=== PATIENT | male | born 1995 | race Caucasian/White ===

== ENCOUNTER 2020-07-31 00:31 | Inpatient (IN) | payer MEDICAID ==
[~2020-07-31] VITALS: Ht 188 cm; Wt 117.9 kg
[2020-07-31] MEDS ORDERED: IPRATROPIUM NEB FS 0.5 MG/2.5 ML AMPUL.NEB NEB PRN (01:30)
[2020-07-31] MEDS ORDERED: ONDANSETRON HCL/PF 4 MG/2 ML VIAL IVP PRN (01:30)
[2020-07-31] MEDS ORDERED: ALBUTEROL FS 2.5 MG/3 ML VIAL.NEB NEB PRN (01:30)
[2020-07-31] MEDS ORDERED: MAGNESIUM HYDROXIDE 30 ML UDC PO PRN (01:30)
[2020-07-31] MEDS ORDERED: MAG HYDROX/AL HYDROX/SIMETH 30 ML UDC PO PRN (01:30)
[2020-07-31] MEDS ORDERED: Z GUARD REMEDY 2 OZ OINT TP PRN (01:30)
[2020-07-31] MEDS ORDERED: ZOLPIDEM TARTRATE 5 MG TABLET PO PRN (01:30)
[2020-07-31 02:15] VITALS: BP 136/91
[2020-07-31] MEDS: HYDROCODONE/APAP 5/325MG TABLET PO PRN ×3 (03:04→18:45)
[2020-07-31] MEDS: methylPREDNISolone SOD SUCC 125 MG/2ML VIAL IV SCH ×3 (05:12→21:10)
[2020-07-31] MEDS: IV NS 0.9% 1,000 ML IV PRN ×2 (05:36→18:45)
--- NOTE | 2020-07-31 06:09 | NUR ---
CUSHION MAKER HAND NOTES AWAKE & RESPONSIVE. NOT IN ANY DISTRESS. NO SOB NOTED. DENIES ANY PAIN OR DISCOMFORT AT THIS TIME. ON TELE SR @ 69 WITH IVF INFUSING WELL. MONITORED ACCORDINGLY. CALL LIGHT WITHIN REACH. BED IN LOWEST POSITION. SR UP X 2 FOR SAFETY. WILL ENDORSE TO NEXT SHIFT.
[2020-07-31 08:00] VITALS: BP 130/87
--- NOTE | 2020-07-31 08:08 | NUR ---
MS/RN OPENING NOTE RECEIVED PATIENT FROM GARBAGE TRUCK DRIVER NURSE. PATIENT IS ASLEEP IN BED, EASILY WOKEN UP. A/O X4. NO ACUTE DISTRESS NOTED. PATIENT ON OXYGEN 3L/MIN VIA NASAL CANNULA, TOLERATING WELL. NO SOB NOTED, BREATHING EVEN, NON LABORED. SAFETY MEASURE IN PLACE, BED LOCKED AND IN LOWEST POSITION, CALL LIGHT WITHIN REACH. WILL CONTINUE TO MONITOR AND ENSURE SAFETY.
[2020-07-31] MEDS: PANTOPRAZOLE 40 MG TABLET.DR PO SCH (08:29)
[2020-07-31] MEDS: LEVOFLOXACIN (250MG) 250 MG TABLET PO SCH (10:58)
[2020-07-31] MEDS: ALBUTEROL FS 2.5 MG/3 ML VIAL.NEB NEB SCH ×4 (12:28→23:30)
[2020-07-31] MEDS: IPRATROPIUM NEB FS 0.5 MG/2.5 ML AMPUL.NEB NEB SCH ×4 (12:28→23:30)
--- NOTE | 2020-07-31 13:12 | NUR ---
MS/RN NOTE PATIENT WAS RECEIVING BREATHING TREATMENT WHEN PATIENT STARTED TO SHIVER AND HAND BEGAN TO TREMOR. BRREATHING TREATMENT WAS STOPPED. VS WERE TAKEN, VS WNL. O2 SAT 98%. CHARGE NURSE WAS MADE AWARE. HEATED BLANKET WAS PLACED. RECHECKED 15 MINUTES LATER PATIENT WAS COMFORTABLE IN HOSPITAL BED. NO ACUTE DISTRESS NOTED.
--- NOTE | 2020-07-31 13:20 | NUR ---
RT NOTE PT WAS RECEIVING BREATHING TX ORDERED WHEN PT BEGAN COMPLAINING OF NAUSEA AND HAND TREMORS AND BEGAN SHIVERING. BREATHING TX WAS STOPPED AND VS TAKEN. VS WERE NORMAL RN JOHN ACSTANEDA.DUMP GRADER NOTIFIED. PT WAS CHECKED 20 MINS LATER. PT WAS FOUND TO BE ASLEEP IN HOSPITAL BED NO DISTRESS NOTED.
[2020-07-31 16:00] VITALS: BP 127/85
--- NOTE | 2020-07-31 19:10 | NUR ---
MS/RN CLOSING NOTE PATIENT IS AWAKE IN BED. A/O X4. NO ACUTE DISTRESS NOTED. PATIENT ON OXYGEN 2L/MIN VIA NASAL CANNULA, TOLERATING WELL. NO SOB NOTED, BREATHING EVEN, NON LABORED. SAFETY MEASURE IN PLACE, BED LOCKED AND IN LOWEST POSITION, CALL LIGHT WITHIN REACH. ALL NEEDS MET THROUGHOUT THE SHIFT. WILL ENDORSE TO AUTO RADIO MECHANIC NURSE.
--- NOTE | 2020-07-31 19:46 | NUR ---
MS CLINICAL CODER INITIAL NOTES Received pt in bed awake and alert oriented watching tv at this time without any distress noted and talking to someone from his cellphone. He still with IVF NS at 75ml/hr infusing on his LEFT AC patent and intact. kept him warm and comfortable at all times. place call light at reach. will continue monitoring.
[2020-07-31 20:00] VITALS: BP 99/56
[2020-07-31] MEDS: ACETAMINOPHEN 325 MG TABLET PO PRN (20:33)
--- NOTE | 2020-07-31 20:35 | NUR ---
accountant assistant notes pt complaint of headache , tylenol po given as ordered. Vital signs within normal limit.
--- NOTE | 2020-08-01 02:11 | NUR ---
ms rahul notes pt called and asking for something for nausea, Zofran given jo IVP as ordered. will continue monitoring.
--- NOTE | 2020-08-01 03:00 | NUR ---
ms rahul notes Checked pt Nausea subside , restring at this time. kep him warm and comfortable at all times. will continue monitoring.
[2020-08-01] MEDS: IPRATROPIUM NEB FS 0.5 MG/2.5 ML AMPUL.NEB NEB SCH ×6 (03:30→23:29)
[2020-08-01] MEDS: ALBUTEROL FS 2.5 MG/3 ML VIAL.NEB NEB SCH ×6 (03:30→23:29)
[2020-08-01] MEDS: methylPREDNISolone SOD SUCC 125 MG/2ML VIAL IV SCH ×3 (05:12→20:43)
--- NOTE | 2020-08-01 06:54 | NUR ---
ms bookkeeping teacher closing notes pt resting comfortably in bed without any SOB , no signs of any distress noted. kept him warm and comfortable at all times. all due meds given and all needs met. kept him warm and comfortable at all times. place call light at reach. will endorse to am nurse for continuity of care.
[2020-08-01 06:58] LABS: BASOPHILS % (AUTO) 0.1 % (0.0-2.0); HEMATOCRIT 45 % (39-51); HEMOGLOBIN 14.9 g/dL (13.5-17.5); LYMPHOCYTES % (AUTO) 6.1 % (20.0-44.0); MEAN CORPUSCULAR HGB CONC 33 g/dl (31.0-36.0); MEAN CORPUSCULAR VOLUME 93 fL (80-96); MONOCYTES # (AUTO) 0.6 /CMM (0.1-1.30); MONOCYTES % (AUTO) 3.6 % (2.0-12.0); NEUTROPHILS # (AUTO) 15.2 /CMM (1.8-8.9); NEUTROPHILS % (AUTO) 90.2 % (43.0-81.0); PLATELET COUNT (AUTO) 253 /CMM (150-450); RED BLOOD CELL COUNT(AUTO) 4.86 MIL/uL (4.5-6.0); WHITE BLOOD COUNT (AUTO) 16.9 K/uL (4.3-11.0)
[2020-08-01 07:19] LABS: CALCIUM, SERUM 9.7 mg/dL (8.5-10.1); CREATININE 0.8 mg/dL (0.6-1.3); MAGNESIUM 2.2 mg/dL (1.8-2.4); PHOSPHORUS 4.1 mg/dL (2.5-4.9)
--- NOTE | 2020-08-01 08:00 | NUR ---
RN Opening note Received patient in bed, AO x 4, able to responds all stimuli. Denies pain or distress. Respiratory even and unlabored in room air, no sob, no cough at this time. Skin is warm to touch, keep clean/dry. [facility] picture taken. Keep elevated HOB for ensure airway and aspiration precaution,also lowest bed position for safety. Call light within reach, will continue to monitor.
[2020-08-01 08:20] VITALS: BP 102/46
[2020-08-01] MEDS: PANTOPRAZOLE 40 MG TABLET.DR PO SCH (08:52)
[2020-08-01] MEDS: LEVOFLOXACIN (250MG) 250 MG TABLET PO SCH (09:29)
[2020-08-01] MEDS: LEVOFLOXACIN 750 MG /D5W 150ML 750 MG in PREMIX 1 EA IV SCH (16:08)
[2020-08-01] MEDS: BENZONATATE 100 MG CAPSULE PO PRN (17:49)
--- NOTE | 2020-08-01 18:30 | NUR ---
RN Closing note Patient in bed, AO x 4, able to responds all stimuli. Respiratory even and unlabored on room air, patient c/o chest pain due to cough, given Tessalon for cough. Skin is warm to touch keep clean/dry, intact IV site. Keep elevated HOB for ensure airway and aspiration precaution, also lowest bed position for safety. Call light within reach, will endorse to retail shift leader.
--- NOTE | 2020-08-01 19:39 | NUR ---
RN NOTES Patient in bed, AO x 4, able to responds all stimuli. Respiratory even and unlabored on room air, tolerating well. Skin is warm to touch keep clean/dry, intact IV site. Keep elevated HOB for ensure airway and aspiration precaution, also lowest bed position for safety. Call light within reach, will continue to monitor.
[2020-08-01 20:00] VITALS: BP 146/85
[2020-08-02] MEDS: IPRATROPIUM NEB FS 0.5 MG/2.5 ML AMPUL.NEB NEB SCH ×6 (02:35→23:25)
[2020-08-02] MEDS: ALBUTEROL FS 2.5 MG/3 ML VIAL.NEB NEB SCH ×6 (02:35→23:25)
[2020-08-02] MEDS: methylPREDNISolone SOD SUCC 125 MG/2ML VIAL IV SCH ×3 (04:42→21:16)
--- NOTE | 2020-08-02 06:33 | NUR ---
RN NOTES Patient in bed, AO x 4, able to responds all stimuli. Respiratory even and unlabored on room air, tolerating well. Skin is warm to touch keep clean/dry, intact IV site. Keep elevated HOB for ensure airway and aspiration precaution, also lowest bed position for safety. Call light within reach will endorse care to day shift nurse.
[2020-08-02 06:57] LABS: BASOPHILS % (AUTO) 0.2 % (0.0-2.0); HEMATOCRIT 43 % (39-51); HEMOGLOBIN 14.5 g/dL (13.5-17.5); LYMPHOCYTES # (AUTO) 0.6 /CMM (0.8-4.8); LYMPHOCYTES % (AUTO) 4.3 % (20.0-44.0); MEAN CORPUSCULAR HGB CONC 34 g/dl (31.0-36.0); MEAN CORPUSCULAR VOLUME 92 fL (80-96); MONOCYTES # (AUTO) 0.4 /CMM (0.1-1.30); MONOCYTES % (AUTO) 2.9 % (2.0-12.0); NEUTROPHILS # (AUTO) 13.6 /CMM (1.8-8.9); NEUTROPHILS % (AUTO) 92.6 % (43.0-81.0); PLATELET COUNT (AUTO) 256 /CMM (150-450); WHITE BLOOD COUNT (AUTO) 14.7 K/uL (4.3-11.0)
[2020-08-02 07:26] LABS: CALCIUM, SERUM 9.3 mg/dL (8.5-10.1)
--- NOTE | 2020-08-02 07:30 | NUR ---
MS RN OPENING NOTE PATIENT IN BED RESTING, ABLE TO BE AWAKEN EASILY. A/O X 4. BREATHING EVEN AND UNLABORED. NO COMPLAINS OF PAIN/DISTRESS AT THE MOMENT. TOLERATING ROOM AIR AT 96% O2 SAT. SAFETY PRECAUTIONS IN PLACE: BED IN LOWEST POSITION, BED LOCKED, CALL LIGHT WITHIN REACH. SKIN INTACT. ENCOURAGED PATIENT TO USE THE CALL LIGHT IF HE NEEDS ANYTHING.
[2020-08-02 08:00] VITALS: BP 113/65
[2020-08-02] MEDS: PANTOPRAZOLE 40 MG TABLET.DR PO SCH (08:41)
--- NOTE | 2020-08-02 09:00 | NUR ---
ms rn due meds given,tolerated well.
[2020-08-02 10:00] VITALS: BP 113/65
[2020-08-02] MEDS: IV NS 0.9% 1,000 ML IV PRN (11:08)
[2020-08-02] MEDS: LEVOFLOXACIN 750 MG /D5W 150ML 750 MG in PREMIX 1 EA IV SCH (13:49)
--- NOTE | 2020-08-02 14:30 | NUR ---
ms rn was seen by dr. forte,awaiting for orders.
--- NOTE | 2020-08-02 15:00 | NUR ---
ms rn new iv site inserted at right hand,g22 w/ good venous output.
[2020-08-02 16:00] VITALS: BP 131/78
--- NOTE | 2020-08-02 17:54 | NUR ---
ms rn on bed, no distress noted, patient refused dinner at this time,
--- NOTE | 2020-08-02 19:05 | NUR ---
MS CHANGE OF SHIFT PATIENT IN BED RESTING, A/O X 4. BREATHING EVEN AND UNLABORED. PATIENT HAS MILD COUGHING. SPUTUM THIN AND CLEAR. NO COMPLAINS OF PAIN/DISTRESS AT THE MOMENT. TOLERATING ROOM AIR AT 95% O2 SAT. PIV ON RIGHT HAND 22G, PATENT AND INTACT. SAFETY PRECAUTIONS IN PLACE: BED IN LOWEST POSITION, BED LOCKED, CALL LIGHT WITHIN REACH. SKIN INTACT. ENCOURAGED PATIENT TO USE THE CALL LIGHT IF HE NEEDS ANYTHING. ENDORSED TO SUEDE CLEANER NURSE.
--- NOTE | 2020-08-02 19:15 | NUR ---
MS RN: CONTINUITY OF CARE Patient in bed, awake, A/O x4. On room air, tolerating well. Non productive cough, sputum thin and clear, no c/o SOB. IVF infusing. Pleasant, no other complaints.
[2020-08-02 20:00] VITALS: BP 125/65
[2020-08-02] MEDS: BENZONATATE 100 MG CAPSULE PO PRN (21:37)
[2020-08-03] MEDS: IV NS 0.9% 1,000 ML IV PRN (03:22)
[2020-08-03] MEDS: IPRATROPIUM NEB FS 0.5 MG/2.5 ML AMPUL.NEB NEB SCH ×4 (03:30→15:30)
[2020-08-03] MEDS: ALBUTEROL FS 2.5 MG/3 ML VIAL.NEB NEB SCH ×4 (03:30→15:30)
[2020-08-03] MEDS: methylPREDNISolone SOD SUCC 125 MG/2ML VIAL IV SCH ×2 (05:20→12:21)
[2020-08-03] MEDS: PANTOPRAZOLE 40 MG TABLET.DR PO SCH (07:41)
--- NOTE | 2020-08-03 07:58 | NUR ---
MS RN OPENING NOTES RECEIVED PT ON BED AAOX4, ASLEEP BUT EASILY AROUSABLE. RESPIRATION EVEN AND NON LABORED WITH NO ACUTE RESPIRATORY DISTRESS, ABLE TO TOLERATE RA WITH NO SOB SECONDARY TO ASTHMA EXACERBATION. ABD SOFT AND NON DISTENDED WITH ACTIVE BOWEL SOUNDS, LBM 08/01. SKIN WARM TO TOUCH AND DRY. PT DENIES PAIN AND DISCOMFORT AT THIS TIME. IV SITE AT RIGHT HAND, NO S/SX OF INFILTRATION, PATENT IN FLUSHING WITH NS @ 75 ML/HR. BED IN LOW LOCKED POSITION, CALL LIGHT WITHIN REACHED, SRX2 UP FOR SAFETY, WILL CONT TO MONITOR CARE
[2020-08-03 09:06] LABS: BASOPHILS % (AUTO) 0.2 % (0.0-2.0); HEMATOCRIT 48 % (39-51); HEMOGLOBIN 15.7 g/dL (13.5-17.5); LYMPHOCYTES # (AUTO) 1.3 /CMM (0.8-4.8); LYMPHOCYTES % (AUTO) 10.6 % (20.0-44.0); MEAN CORPUSCULAR HGB CONC 33 g/dl (31.0-36.0); MEAN CORPUSCULAR VOLUME 93 fL (80-96); MONOCYTES # (AUTO) 0.8 /CMM (0.1-1.30); MONOCYTES % (AUTO) 6.2 % (2.0-12.0); NEUTROPHILS # (AUTO) 10.1 /CMM (1.8-8.9); PLATELET COUNT (AUTO) 252 /CMM (150-450); RED BLOOD CELL COUNT(AUTO) 5.16 MIL/uL (4.5-6.0); WHITE BLOOD COUNT (AUTO) 12.1 K/uL (4.3-11.0)
[2020-08-03] MEDS: LEVOFLOXACIN 750 MG /D5W 150ML 750 MG in PREMIX 1 EA IV SCH (13:02)
[2020-08-03] MEDS: ACETAMINOPHEN 325 MG TABLET PO PRN (15:46)
[2020-08-03] MEDS ORDERED: METH4TAB17 PO (15:50)
[2020-08-03] MEDS ORDERED: BENZ-13 PO (15:50)
[2020-08-03] MEDS ORDERED: PANT40TA2 PO (15:50)
[2020-08-03] MEDS ORDERED: LEVO500T90 PO (15:50)
[2020-08-03 16:00] VITALS: BP 118/69
--- NOTE | 2020-08-03 18:17 | NUR ---
M/S RN NOTES PT DISCHARGE TO HOME IN STABLE CONDITION. AAOX4, ABLE TO MAKE NEEDS KNOWN. NO SOB NOTED. NO PAIN REPORTED. LBM TODAY. SKIN INTACT, WARM TO TOUCH AND DRY.IV REMOVED, [place] WELL. EXIT CARE PROVIDED. ALL CONCERNS ADDRESSED. PRESCRIPTIONS PROVIDED. LEFT WITH COUSIN IN SAFE CONDITION.
== END 2020-08-03 17:45 | disposition home or self-care (01) | DRG 145 ==
LOC: TELE 01:49 → MED 14:41
PROVIDERS: ADMIT Nurse Practitioner Acute Care; ATTEND Nurse Practitioner Acute Care
DX: J20.9 Acute bronchitis, unspecified (principal); J96.00 Acute respiratory failure, unspecified whether with hypoxia or hypercapnia; J45.902 Unspecified asthma with status asthmaticus; F19.90 Other psychoactive substance use, unspecified, uncomplicated; E66.9 Obesity, unspecified; Z86.16 Personal history of COVID-19; F12.90 Cannabis use, unspecified, uncomplicated; Z68.33 Body mass index [BMI] 33.0-33.9, adult; J32.9 Chronic sinusitis, unspecified; G47.33 Obstructive sleep apnea (adult) (pediatric); Z20.822 Contact with and (suspected) exposure to COVID-19; T38.0X5A Adverse effect of glucocorticoids and synthetic analogues, initial encounter; Y92.9 Unspecified place or not applicable
CPT/HCPCS: 36415; 70220-TC; 71045-TC; 80048-TC; 82728-TC; 83605-TC; 83735-TC; 84100-TC; 85025-TC; 86140-TC; 87081-TC; 94761-TC; 94799-TC; A4216; G0378; J1956; J2405; J2930; J7030; J7050

== ENCOUNTER 2024-10-26 18:35 | Emergency (ER) | payer MEDICAID, OTHER ==
[~2024-10-26] VITALS: Ht 188 cm; Wt 81.6 kg
[~2024-10-26 18:35] MED LIST: BENZ-13 PO; LEVO500T90 PO; METH4TAB17 PO; PANT40TA2 PO
[2024-10-26] MEDS ORDERED: IOHEXOL-300 100 ML VIAL IV ONE (19:26)
[2024-10-26] MEDS ORDERED: IV NS 0.9% 250 ML IV ONE (19:26)
[2024-10-26] MEDS ORDERED: CT SWABBABLE VALVE TRANS SET 1 EA INFUS.SET MC ONE (19:26)
[2024-10-26] MEDS ORDERED: ONDANSETRON HCL/PF 4 MG/2 ML VIAL ONE (19:56)
[2024-10-26] MEDS ORDERED: MORPHINE SULFATE INJ 4 MG/ML DISP.SYRIN ONE (19:56)
[2024-10-26] MEDS: ONDANSETRON HCL/PF 4 MG/2 ML VIAL IVP ONE (20:00)
[2024-10-26] MEDS: MORPHINE SULFATE INJ 2 MG/ML DISP.SYRIN IV ONE (20:00)
[2024-10-26 20:03] LABS: BASOPHILS % (AUTO) 0.9 % (0.0-2.0); EOSINOPHILS # (AUTO) 0.1 K/uL (0.0-0.7); EOSINOPHILS % (AUTO) 2.8 % (0.0-6.0); HEMATOCRIT 39 % (39-51); HEMOGLOBIN 12.8 g/dL (13.5-17.5); LYMPHOCYTES # (AUTO) 1.9 K/uL (0.8-4.8); LYMPHOCYTES % (AUTO) 45.6 % (20.0-44.0); MEAN CORPUSCULAR HEMOGLOBIN 32 PG (26.0-33.0); MEAN CORPUSCULAR HGB CONC 33 g/dl (31.0-36.0); MEAN CORPUSCULAR VOLUME 96 fL (80-96); MONOCYTES # (AUTO) 0.5 K/uL (0.1-1.30); MONOCYTES % (AUTO) 11.7 % (2.0-12.0); NEUTROPHILS # (AUTO) 1.6 K/uL (1.8-8.9); PLATELET COUNT (AUTO) 171 K/uL (150-450); RED BLOOD CELL COUNT(AUTO) 4.02 MIL/uL (4.5-6.0); RED CELL DISTRIBUTION WIDTH 13.4 % (11.5-15.0); WHITE BLOOD COUNT (AUTO) 4.2 K/uL (4.3-11.0)
[2024-10-26 20:11] LABS: CALCIUM, SERUM 8.4 mg/dL (8.5-10.1); CREATININE 0.8 mg/dL (0.6-1.3)
[2024-10-26 20:17] LABS: ALBUMIN 3.3 g/dL (3.4-5.0); BILIRUBIN,DIRECT 0.1 mg/dL (0.0-0.2); BILIRUBIN,TOTAL 0.3 mg/dL (0.2-1.0); TOTAL PROTEIN, SERUM 6.5 g/dL (6.4-8.2)
[2024-10-26] MEDS ORDERED: CYCL5TAB PO (20:34)
[2024-10-26] MEDS ORDERED: LIDO30AD10 TP (20:34)
[2024-10-26] MEDS ORDERED: IBUP-1955 PO (20:34)
[2024-10-26 22:37] VITALS: BP 10/65; TEMP 98.2; O2SAT 100
== END 2024-10-26 22:38 | disposition home or self-care (01) ==
LOC: ER 18:37
DX: S16.1XXA Strain of muscle, fascia and tendon at neck level, initial encounter (principal); S13.4XXA Sprain of ligaments of cervical spine, initial encounter; S39.012A Strain of muscle, fascia and tendon of lower back, initial encounter; S83.91XA Sprain of unspecified site of right knee, initial encounter; S63.501A Unspecified sprain of right wrist, initial encounter; R10.819 Abdominal tenderness, unspecified site; Z88.8 Allergy status to other drugs, medicaments and biological substances; V43.52XA Car driver injured in collision with other type car in traffic accident, initial encounter; Y93.89 Activity, other specified; Y92.488 Other paved roadways as the place of occurrence of the external cause; Y99.8 Other external cause status
CPT/HCPCS: 99285; 71260; 96374; 96375; 73564; 70450; 70490; 73110; 74177; 85025; 80048; 83690; 80076; 36415; J2270; J2405; J7050; Q9967